=== PATIENT | female | born 1950 | race Caucasian/White ===

== ENCOUNTER 2016-08-22 09:10 | Inpatient (IN) | payer OTHER, BC ==
[~2016-08-22] VITALS: Ht 160 cm; Wt 66.5 kg
[~2016-08-22 09:10] MED LIST: ALEVE220 M2 PO; AZITHROMYCIN500 M1 PO; DULERA 100 MCG/13 GM IH; FLEET ENEMA-AD118 ML PR; LEVOFLOXACIN750 MG PO; MIRALAX17 GM PO; PANTOPRAZOLE SO40 MG PO; PEPCID20 MG PO; PERCOCET 5/31 TABLET PO; PREDNISONE10 MG PO; PREDNISONE20 MG PO; SPIRIVA1 INHALATI IH; THEOCHRON200 MG PO; VENTOLIN HFA18 GM IH
[2016-08-22 10:38] LABS: EOSINOPHIL (%) 0.5 % (0-5); IMMATURE GRANULOCYTE (%) 0.2 % (0.0-0.7); INSTRUMENT ABS NEUTROPHIL CT 5.7 K/uL; LYMPHOCYTE COUNT 1.9 K/uL (1.0-2.8); MCH 27.6 PG (29.0-34.0); MCHC 31.2 G/DL (30.0-36.0); MCV 88.6 FL (83-99); MEAN PLAT.VOLUME 10.7 uM^3 (9.5-12.4); MONOCYTE (%) 7.3 % (3-12); MONOCYTE COUNT 0.6 K/uL (0-0.8); NEUTROPHIL (%) 69.2 % (45-76); NEUTROPHIL COUNT 5.7 K/uL (1.8-6.4); PLATELET COUNT 220 K/uL (156-360); RBC DIS.WIDTH-CV 12.9 % (11.8-14.6); RBC DIS.WIDTH-SD 41.6 % (39-53); RED BLOOD COUNT 4.63 M/uL (3.80-5.20); WHITE BLOOD COUNT 8.3 K/uL (4.1-10.2)
[2016-08-22 11:01] LABS: TROP-I INTERPRETATION NEGATIVE; TROPONIN-I 0.02 ng/mL (0.0-0.30)
[2016-08-22 12:59] LABS: CHLORIDE 101 mEq/L (99-109); SODIUM 141 mEq/L (136-147)
[2016-08-22 13:01] LABS: GLUCOSE 93 mg/dL (70-99)
[2016-08-22 13:02] LABS: ANION GAP 11 MEQ/L (2-14)
[2016-08-22 13:03] LABS: TOTAL BILIRUBIN 0.3 mg/dL (0.0-1.0)
[2016-08-22 13:05] LABS: ALKALINE PHOSPHATASE 65 IU/L (3-129); GFR ESTIMATE (CALCULATED) > 59 mL/min/
[2016-08-22 13:06] LABS: UREA NITROGEN (BUN) 11 mg/dL (9-23)
[2016-08-22] MEDS ORDERED: ADVIL,NUPRIN,M200 MG PO (14:19)
[2016-08-22] MEDS ORDERED: THEO-24200 MG PO (14:19)
[2016-08-22 16:08] VITALS: BP 140/78
[2016-08-22 19:51] VITALS: BP 150/70
[2016-08-22 23:41] VITALS: BP 131/67
[2016-08-23 05:16] VITALS: BP 137/76
[2016-08-23 06:25] LABS: HEMATOCRIT 37.7 % (36.0-46.0); MCH 27.6 PG (29.0-34.0); MCHC 31.3 G/DL (30.0-36.0); MCV 88.1 FL (83-99); MEAN PLAT.VOLUME 10.3 uM^3 (9.5-12.4); PLATELET COUNT 202 K/uL (156-360); RBC DIS.WIDTH-CV 12.6 % (11.8-14.6); RBC DIS.WIDTH-SD 40.6 % (39-53); RED BLOOD COUNT 4.28 M/uL (3.80-5.20); WHITE BLOOD COUNT 5.8 K/uL (4.1-10.2)
[2016-08-23 06:32] LABS: ANION GAP 6 MEQ/L (2-14); CHLORIDE 98 MEQ/L (99-109); GFR ESTIMATE (CALCULATED) > 59 mL/min/; POTASSIUM 4.1 MEQ/L (3.7-5.4); SAMPLE HEMOLYSIS CHECK 0; SAMPLE ICTERIC CHECK 0; SAMPLE LIPEMIA CHECK 0; SODIUM 137 MEQ/L (136-147); UREA NITROGEN (BUN) 17 mg/dL (9-23)
[2016-08-23 06:33] LABS: GLUCOSE 144 mg/dL (70-99)
[2016-08-23 07:39] VITALS: BP 131/73
[2016-08-23 11:37] VITALS: BP 132/61
[2016-08-23 16:31] VITALS: BP 134/71
[2016-08-23 19:35] VITALS: BP 130/57
[2016-08-23 23:41] VITALS: BP 126/70
[2016-08-24 03:25] VITALS: BP 143/65
[2016-08-24 06:45] LABS: HEMATOCRIT 36.7 % (36.0-46.0); MCH 28.2 PG (29.0-34.0); MCHC 31.9 G/DL (30.0-36.0); MCV 88.4 FL (83-99); MEAN PLAT.VOLUME 11.1 uM^3 (9.5-12.4); PLATELET COUNT 202 K/uL (156-360); RBC DIS.WIDTH-CV 12.9 % (11.8-14.6); RBC DIS.WIDTH-SD 41.4 % (39-53); RED BLOOD COUNT 4.15 M/uL (3.80-5.20)
[2016-08-24 06:46] LABS: WHITE BLOOD COUNT 9.8 K/uL (4.1-10.2)
[2016-08-24 07:05] LABS: ANION GAP 8 MEQ/L (2-14); CHLORIDE 98 MEQ/L (99-109); GFR ESTIMATE (CALCULATED) > 59 mL/min/; GLUCOSE 145 mg/dL (70-99); POTASSIUM 4.9 MEQ/L (3.7-5.4); SAMPLE HEMOLYSIS CHECK 0; SAMPLE ICTERIC CHECK 0; SAMPLE LIPEMIA CHECK 0; SODIUM 139 MEQ/L (136-147); UREA NITROGEN (BUN) 20 mg/dL (9-23)
[2016-08-24 07:25] VITALS: BP 156/71
[2016-08-24 11:03] VITALS: BP 149/67
[2016-08-24 15:05] VITALS: BP 126/62
[2016-08-24 20:00] VITALS: BP 131/63
[2016-08-25] VITALS: BP 121/64
[2016-08-25 03:52] VITALS: BP 134/66
[2016-08-25 07:25] VITALS: BP 142/61
[2016-08-25] MEDS ORDERED: PREDNISONE20 MG PO (09:45)
[2016-08-25 11:21] VITALS: BP 118/65
== END 2016-08-25 13:12 | disposition home or self-care (01) | DRG 189 ==
LOC: EME 09:10 → EDOF 13:36 → 5SOUTH 13:36
PROVIDERS: Emergency Medicine; Hospitalist; Internal Medicine
DX: J96.21 Acute and chronic respiratory failure with hypoxia (principal); J44.1 Chronic obstructive pulmonary disease with (acute) exacerbation; J44.0 Chronic obstructive pulmonary disease with (acute) lower respiratory infection; Z99.81 Dependence on supplemental oxygen; J20.9 Acute bronchitis, unspecified; K21.9 Gastro-esophageal reflux disease without esophagitis; F17.210 Nicotine dependence, cigarettes, uncomplicated
CPT/HCPCS: 71020; 80048; 80053; 83880; 84484; 85025; 85027; 93005; 94640; 94640 76; 94799; 99202; 99281; 99285; J0456; J1650; J2930; J7040; J7512